=== PATIENT | female | born 1980 | race Caucasian/White ===

== ENCOUNTER 2018-01-24 11:30 | Outpatient (RCR) | payer BC, SELFPAY ==
--- NOTE | 2017-11-12 21:42 | PT.OIE ---
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) Full incontinence of feces (11/09/17) Provider Visit Care Team Role Provider Type Aminata Mackey MD Attending Provider Physician Family Provider Primary Care Provider Specialty: ARTISTIC DIRECTOR Address: [address] [place] [address], [phone] Email: [email or web address] Physical Therapy Initial Evaluation PT-OP-A Visit Information Start: 11/12/17 21:14 Freq: Status: Active Protocol: Document 11/09/17 11:15 [facility] (Rec: 11/12/17 21:42 [facility] [email or web address]) Out-Patient Physical Therapy Visit Information Visit Information Visit Type Initial Evaluation Visit Start Time 11:15 Visit Stop Time 12:00 Total Visit Minutes 45 Visit Number 1 Number of BRIDGE IRONWORKER Visits 0 Evaluation Information Evaluation Date 11/09/17 PT-OP-B Current Condition Start: 11/12/17 21:14 Freq: Status: Active Protocol: Document 11/09/17 11:15 [facility] (Rec: 11/12/17 21:42 [facility] [email or web address]) Current Condition History of Current Condition Onset Date 02/15/14 Current Complaints fecal incontinence, rectovaginal fistula, pelvic floor weakness History of Current Condition 36 year old female presenting with pelvic floor weakness that began after the of her first child 02/15/14. She has had 2 vaginal deliveries and a fistula was seen with her second vaginal delivery. She underwent fistula repair in February 2017. She was seen in PT in July 2017 prior to a interstimulation implant the end of August 2017. Her chief complains are of fecal incontinence and urgency . Jamar reports since the intersimulation impant she has noticed that her fecal urgency is decreased. She is still reporting bowel leakage 1+ time per day. Symptoms are increased with exercise, sit- stand, strong urge to go. Leakage only occurs in standing positions Treatment Goals Patient/Caregiver Goals Jamar's goals include eliminating fecal incontinence and improving her ability to exercise and enjoy recreational activities without fecal urgency. Prior Functional Status Baseline Function- ADL's Independent Baseline Function- Mobility Independent PT-OP-I Pelvic Floor Start: 11/12/17 21:14 Freq: Status: Active Protocol: Document 11/09/17 11:15 [facility] (Rec: 11/12/17 21:42 [facility] [email or web address]) Pelvic Floor Assessment Bowel Bowel Surgery Yes Bowel Symptoms Fecal Leakage Bowel Movement Frequency 3-6 [place] Stool Chart Comments currently stool is loose due to increased fiber intake Pelvic Clock Pelvic Clock 12-3 Atrophy Pelvic Clock 3-6 Atrophy Pelvic Clock 6-9 Atrophy Pelvic Clock 9-12 Atrophy SEMG (uV) Baseline 5 10 Second Contraction 8.1 Recruitment Pattern Poor/Slow Relaxation Fair Holding Poor/Slow Stability of Hold Poor/Slow SEMG Stability of Rest Fair Contraction Ability Voluntary Contraction Weak Voluntary Relaxation Weak Manual Muscle Testing Left 2 Manual Muscle Testing Right 2 Manual Muscle Testing Anterior 1 Manual Muscle Testing Posterior 3 Muscle Endurance (Seconds) 5 PT-OP-Q Treatments Start: 11/12/17 21:14 Freq: Status: Active Protocol: Document 11/09/17 11:15 [facility] (Rec: 11/12/17 21:42 [facility] [email or web address]) Therapeutic Exercises Supine Exercises 1 Supine Exercise Name pelvic floor strengthening exercises with EMG biofeedback Side bilateral Reps/Minutes 15 min PT-OP-T Assessment and Plan Start: 11/12/17 21:14 Freq: Status: Active Protocol: Document 11/09/17 11:15 [facility] (Rec: 11/12/17 21:42 [facility] [email or web address]) Physical Therapy Assessment Rehab Potential Rehabilitation Potential Good Evaluation Complexity Number of Personal Factors/Comorbidities 1-2 Number of Body Systems Impaired 1-2 Clinical Presentation at Evaluation Stable Impairments Impairments Activity Tolerance Sensation Strength Tone Goals Three Impairment elevated resting tone of the levator ani Short Term Goal (STG) Improve resting tone of the pelvic floor on EMG biofeedback to 2 uv or less STG Duration 6 weeks Two Impairment Decreased endurance of the levator ani Halfway Goal (LTG) Improve endurance of the levator ani to 10 second hold time in supine and 5 second hold time in standing LTG Duration 8 weeks One Impairment Weakness of the pelvic floor Loader Helper Goal (LTG) Improve pelvic floor strength with neuro -reeducation and EMG biofeedback to improve support to the rectum and sphincter and decrease fecal incontinence Assessment Summary Assessment Jamar presents to Physical therapy s/p InterStim and retrovaginal fistula repair with a great deal of pelvic floor muscle weakness. She continues to report fecal leakage but does not fecal urgency has lessened since her InterStim was placed. She is able to feel palpation of the levator ani but has difficulty with recruitment of the muscle and demonstrates poor endurance of her pelvic floor. Physical Therapy Plan Frequency and Duration Frequency of Treatment 1x/Week Duration of Treatment 8 weeks Plan of Care Start Date 11/09/17 Plan of Care End Date 01/04/18 Therapeutic Interventions Therapeutic Interventions Gait Training Manual Therapy Neuromuscular Re-education Self-Care/Home Management Therapeutic Exercises Modalities Biofeedback Electric Stimulation Please Sign and Return: I have reviewed this Plan of Care and certify that the skilled therapy services above are required to meet the patient?s needs. Physician Signature Date Printed Name and Credentials Clinical Instructor Signature Printed Name and Credentials
--- NOTE | 2017-11-23 18:51 | PT.OTN ---
Current Diagnoses Other female genital prolapse (11/22/17) Fistula of vagina to large intestine (11/22/17) Full incontinence of feces (11/22/17) Physical Therapy Treatment Note PT-OP-A Visit Information Start: 11/12/17 21:14 Freq: Status: Active Protocol: Document 11/22/17 11:30 [facility] (Rec: 11/23/17 18:51 [facility] [email or web address]) Out-Patient Physical Therapy Visit Information Visit Information Visit Type Treatment Note Visit Start Time 11:30 Visit Stop Time 12:15 Total Visit Minutes 45 Visit Number 2 Number of SKILLED LABOR Visits 0 PT-OP-B Current Condition Start: 11/12/17 21:14 Freq: Status: Active Protocol: Document 11/09/17 11:15 [facility] (Rec: 11/12/17 21:42 [facility] [email or web address]) Current Condition History of Current Condition Onset Date 02/15/14 Current Complaints fecal incontinence, rectovaginal fistula, pelvic floor weakness History of Current Condition 36 year old female presenting with pelvic floor weakness that began after the of her first child 02/15/14. She has had 2 vaginal deliveries and a fistula was seen with her second vaginal delivery. She underwent fistula repair in February 2017. She was seen in PT in July 2017 prior to a interstimulation implant the end of August 2017. Her chief complains are of fecal incontinence and urgency . Jamar reports since the intersimulation impant she has noticed that her fecal urgency is decreased. She is still reporting bowel leakage 1+ time per day. Symptoms are increased with exercise, sit- stand, strong urge to go. Leakage only occurs in standing positions Treatment Goals Patient/Caregiver Goals Jamar's goals include eliminating fecal incontinence and improving her ability to exercise and enjoy recreational activities without fecal urgency. Prior Functional Status Baseline Function- ADL's Independent Baseline Function- Mobility Independent PT-OP-C Subjective Start: 11/12/17 21:14 Freq: Status: Active Protocol: Document 11/22/17 11:30 [facility] (Rec: 11/23/17 18:51 [facility] [email or web address]) OP-PT Subjective Patient Comments Patient Comments still noting fecal incontinence symptoms but tolerating exercises well PT-OP-I Pelvic Floor Start: 11/12/17 21:14 Freq: Status: Active Protocol: Document 11/09/17 11:15 [facility] (Rec: 11/12/17 21:42 [facility] [email or web address]) Pelvic Floor Assessment Bowel Bowel Surgery Yes Bowel Symptoms Fecal Leakage Bowel Movement Frequency 3-6 [place] Stool Chart Comments currently stool is loose due to increased fiber intake Pelvic Clock Pelvic Clock 12-3 Atrophy Pelvic Clock 3-6 Atrophy Pelvic Clock 6-9 Atrophy Pelvic Clock 9-12 Atrophy SEMG (uV) Baseline 5 10 Second Contraction 8.1 Recruitment Pattern Poor/Slow Relaxation Fair Holding Poor/Slow Stability of Hold Poor/Slow SEMG Stability of Rest Fair Contraction Ability Voluntary Contraction Weak Voluntary Relaxation Weak Manual Muscle Testing Left 2 Manual Muscle Testing Right 2 Manual Muscle Testing Anterior 1 Manual Muscle Testing Posterior 3 Muscle Endurance (Seconds) 5 PT-OP-Q Treatments Start: 11/12/17 21:14 Freq: Status: Active Protocol: Document 11/22/17 11:30 [facility] (Rec: 11/23/17 18:51 [facility] [email or web address]) Therapeutic Exercises Supine Exercises 5 Supine Exercise Name TA facilitation 4 Supine Exercise Name adductor squeeze with pelvic floor contraction 3 Supine Exercise Name Roll outs with theraband 2 Supine Exercise Name quick pelvic floor contractions Reps/Minutes 2 seconds on 2 seconds off 1 Supine Exercise Name pelvic floor strengthening exercises with EMG biofeedback Side bilateral Reps/Minutes 10 min Comments including templates for coordination and eccentric control Other Exercises 1 Other Exercise Name quadraped TA facilitation PT-OP-T Assessment and Plan Start: 11/12/17 21:14 Freq: Status: Active Protocol: Document 11/22/17 11:30 [facility] (Rec: 11/23/17 18:51 [facility] [email or web address]) Physical Therapy Assessment Assessment Summary Assessment added in templates for eccentric control and coordination today and Roldan tolerated this well. Begin working on improved TA stabilization Physical Therapy Plan Frequency and Duration Frequency of Treatment 1x/Week Duration of Treatment 8 weeks Plan of Care Start Date 11/09/17 Plan of Care End Date 01/04/18 Therapeutic Interventions Therapeutic Interventions Manual Therapy Neuromuscular Re-education Self-Care/Home Management Therapeutic Exercises Modalities Biofeedback Electric Stimulation Next Visit Focus/Plan Next Note Type Treatment Note Next Visit Plan progress TA facilitation in supine to include dynamic stabilization
--- NOTE | 2017-12-21 17:16 | PT.OTN ---
Current Diagnoses Other female genital prolapse (12/21/17) Fistula of vagina to large intestine (12/21/17) Full incontinence of feces (12/21/17) Physical Therapy Treatment Note PT-OP-A Visit Information Start: 11/12/17 21:14 Freq: Status: Active Protocol: Document 12/21/17 17:06 [facility] (Rec: 12/21/17 17:13 [facility] [email or web address]) Out-Patient Physical Therapy Visit Information Visit Information Visit Type Treatment Note Visit Start Time 04:00 Visit Stop Time 04:45 Total Visit Minutes 45 Visit Number 3 Number of ALTERATION HAND Visits 0 Evaluation Information Evaluation Date 11/09/17 PT-OP-B Current Condition Start: 11/12/17 21:14 Freq: Status: Active Protocol: Document 11/09/17 11:15 [facility] (Rec: 11/12/17 21:42 [facility] [email or web address]) Current Condition History of Current Condition Onset Date 02/15/14 Current Complaints fecal incontinence, rectovaginal fistula, pelvic floor weakness History of Current Condition 36 year old female presenting with pelvic floor weakness that began after the of her first child 02/15/14. She has had 2 vaginal deliveries and a fistula was seen with her second vaginal delivery. She underwent fistula repair in February 2017. She was seen in PT in July 2017 prior to a interstimulation implant the end of August 2017. Her chief complains are of fecal incontinence and urgency . Jamar reports since the intersimulation impant she has noticed that her fecal urgency is decreased. She is still reporting bowel leakage 1+ time per day. Symptoms are increased with exercise, sit- stand, strong urge to go. Leakage only occurs in standing positions Treatment Goals Patient/Caregiver Goals Jamar's goals include eliminating fecal incontinence and improving her ability to exercise and enjoy recreational activities without fecal urgency. Prior Functional Status Baseline Function- ADL's Independent Baseline Function- Mobility Independent PT-OP-C Subjective Start: 11/12/17 21:14 Freq: Status: Active Protocol: Document 12/21/17 17:06 [facility] (Rec: 12/21/17 17:13 [facility] [email or web address]) OP-PT Subjective Patient Comments Patient Comments Jamar reports that a new setting was tried on the NMES unit. She is not sure but she might be a bit better with this new setting. She was able to walk around the vargas without leakage. She also reports being able to feel her pelvic floor contractions better now PT-OP-I Pelvic Floor Start: 11/12/17 21:14 Freq: Status: Active Protocol: Document 11/09/17 11:15 [facility] (Rec: 11/12/17 21:42 [facility] [email or web address]) Pelvic Floor Assessment Bowel Bowel Surgery Yes Bowel Symptoms Fecal Leakage Bowel Movement Frequency 3-6 [place] Stool Chart Comments currently stool is loose due to increased fiber intake Pelvic Clock Pelvic Clock 12-3 Atrophy Pelvic Clock 3-6 Atrophy Pelvic Clock 6-9 Atrophy Pelvic Clock 9-12 Atrophy SEMG (uV) Baseline 5 10 Second Contraction 8.1 Recruitment Pattern Poor/Slow Relaxation Fair Holding Poor/Slow Stability of Hold Poor/Slow SEMG Stability of Rest Fair Contraction Ability Voluntary Contraction Weak Voluntary Relaxation Weak Manual Muscle Testing Left 2 Manual Muscle Testing Right 2 Manual Muscle Testing Anterior 1 Manual Muscle Testing Posterior 3 Muscle Endurance (Seconds) 5 PT-OP-Q Treatments Start: 11/12/17 21:14 Freq: Status: Active Protocol: Document 12/21/17 17:06 [facility] (Rec: 12/21/17 17:13 [facility] [email or web address]) Therapeutic Exercises Supine Exercises 5 Supine Exercise Name TA facilitation then marches and heel slides Reps/Minutes 10 reps each 4 Supine Exercise Name adductor squeeze with pelvic floor contraction Reps/Minutes 10 reps 2 Supine Exercise Name quick pelvic floor contractions Reps/Minutes 2 seconds on 2 seconds off 1 Supine Exercise Name pelvic floor strengthening exercises with EMG biofeedback Side bilateral Reps/Minutes 10 min Comments including templates for coordination and eccentric control Sidelying Exercises 1 Sidelying Exercise Name clam shells and side leg lifts Reps/Minutes 2 x 10 each Other Exercises 1 Other Exercise Name Quadraped TA facilitation then opp arms and opp legs Reps/Minutes 10 reps each PT-OP-T Assessment and Plan Start: 11/12/17 21:14 Freq: Status: Active Protocol: Document 12/21/17 17:14 [facility] (Rec: 12/21/17 17:16 [facility] [email or web address]) Physical Therapy Assessment Progress Towards Goals Progress Towards Goals Progressing Toward Goals Assessment Summary Assessment Jamar continues to show progress with pelvic floor strengthening. Her average today was 10.5 uv with max of 15.8 uv. She would benefit from continued stabilization and progression to upright strengthening. Try pelvic floor lifts seated on ball next visit Physical Therapy Plan Frequency and Duration Frequency of Treatment 1x/Week Duration of Treatment 8 weeks Plan of Care Start Date 11/09/17 Plan of Care End Date 01/04/18 Therapeutic Interventions Therapeutic Interventions Manual Therapy Neuromuscular Re-education Self-Care/Home Management Therapeutic Exercises Modalities Biofeedback Electric Stimulation Next Visit Focus/Plan Next Note Type Treatment Note Next Visit Plan progress TA facilitation in supine to include dynamic stabilization, standing and seated pelvic floor contraction
--- NOTE | 2018-01-03 13:53 | PT.OTN ---
Current Diagnoses Other female genital prolapse (01/03/18) Fistula of vagina to large intestine (01/03/18) Full incontinence of feces (01/03/18) Physical Therapy Treatment Note PT-OP-A Visit Information Start: 11/12/17 21:14 Freq: Status: Active Protocol: Document 01/03/18 13:43 [facility] (Rec: 01/03/18 13:53 [facility] [email or web address]) Out-Patient Physical Therapy Visit Information Visit Information Visit Type Treatment Note Visit Start Time 11:30 Visit Stop Time 12:15 Total Visit Minutes 45 Visit Number 4 Number of PUBLIC EMPLOYMENT MEDIATOR Visits 0 PT-OP-B Current Condition Start: 11/12/17 21:14 Freq: Status: Active Protocol: Document 11/09/17 11:15 [facility] (Rec: 11/12/17 21:42 [facility] [email or web address]) Current Condition History of Current Condition Onset Date 02/15/14 Current Complaints fecal incontinence, rectovaginal fistula, pelvic floor weakness History of Current Condition 36 year old female presenting with pelvic floor weakness that began after the of her first child 02/15/14. She has had 2 vaginal deliveries and a fistula was seen with her second vaginal delivery. She underwent fistula repair in February 2017. She was seen in PT in July 2017 prior to a interstimulation implant the end of August 2017. Her chief complains are of fecal incontinence and urgency . Jamar reports since the intersimulation impant she has noticed that her fecal urgency is decreased. She is still reporting bowel leakage 1+ time per day. Symptoms are increased with exercise, sit- stand, strong urge to go. Leakage only occurs in standing positions Treatment Goals Patient/Caregiver Goals Jamar's goals include eliminating fecal incontinence and improving her ability to exercise and enjoy recreational activities without fecal urgency. Prior Functional Status Baseline Function- ADL's Independent Baseline Function- Mobility Independent PT-OP-C Subjective Start: 11/12/17 21:14 Freq: Status: Active Protocol: Document 01/03/18 13:43 [facility] (Rec: 01/03/18 13:53 [facility] [email or web address]) OP-PT Subjective Patient Comments Patient Comments Jamar reports she does feel like the new setting works better on her neurostimulation unit. She hasn't noticed a big change but has done a few hikes without leakage PT-OP-I Pelvic Floor Start: 11/12/17 21:14 Freq: Status: Active Protocol: Document 11/09/17 11:15 [facility] (Rec: 11/12/17 21:42 [facility] [email or web address]) Pelvic Floor Assessment Bowel Bowel Surgery Yes Bowel Symptoms Fecal Leakage Bowel Movement Frequency 3-6 [place] Stool Chart Comments currently stool is loose due to increased fiber intake Pelvic Clock Pelvic Clock 12-3 Atrophy Pelvic Clock 3-6 Atrophy Pelvic Clock 6-9 Atrophy Pelvic Clock 9-12 Atrophy SEMG (uV) Baseline 5 10 Second Contraction 8.1 Recruitment Pattern Poor/Slow Relaxation Fair Holding Poor/Slow Stability of Hold Poor/Slow SEMG Stability of Rest Fair Contraction Ability Voluntary Contraction Weak Voluntary Relaxation Weak Manual Muscle Testing Left 2 Manual Muscle Testing Right 2 Manual Muscle Testing Anterior 1 Manual Muscle Testing Posterior 3 Muscle Endurance (Seconds) 5 PT-OP-Q Treatments Start: 11/12/17 21:14 Freq: Status: Active Protocol: Document 01/03/18 13:43 [facility] (Rec: 01/03/18 13:53 [facility] [email or web address]) Therapeutic Exercises Supine Exercises 5 Supine Exercise Name TA facilitation then marches and heel slides Reps/Minutes 10 reps each 4 Supine Exercise Name adductor squeeze with pelvic floor contraction Reps/Minutes 10 reps 2 Supine Exercise Name quick pelvic floor contractions Reps/Minutes 2 seconds on 2 seconds off 1 Supine Exercise Name pelvic floor strengthening exercises with EMG biofeedback Side bilateral Reps/Minutes 10 min Comments including templates for coordination and eccentric control Sitting Exercises 2 Sitting Exercise Name seated ball pelvic tilts and pelvic circles 1 Sitting Exercise Name seated ball pelvic floor contractions Standing Exercises 1 Standing Exercise Name standing pelvic floor contractions PT-OP-T Assessment and Plan Start: 11/12/17 21:14 Freq: Status: Active Protocol: Document 01/03/18 13:43 [facility] (Rec: 01/03/18 13:53 [facility] [email or web address]) Physical Therapy Assessment Assessment Summary Assessment Average today on EMG biofeedback had improved to 12 .1 uv so Jamar is showing continued progress. She also tolerated the seated and standing exercises well Physical Therapy Plan Frequency and Duration Frequency of Treatment 1x/Week Duration of Treatment 8 weeks Plan of Care Start Date 11/09/17 Plan of Care End Date 01/04/18 Therapeutic Interventions Therapeutic Interventions Manual Therapy Neuromuscular Re-education Self-Care/Home Management Therapeutic Exercises Modalities Biofeedback Electric Stimulation Next Visit Focus/Plan Next Note Type Treatment Note Next Visit Plan progress TA facilitation in supine to include dynamic stabilization, standing and seated pelvic floor contraction
--- NOTE | 2018-01-25 17:42 | PT.OTN ---
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) Full incontinence of feces (01/24/18) Physical Therapy Treatment Note PT-OP-A Visit Information Start: 11/12/17 21:14 Freq: Status: Active Protocol: Document 01/24/18 17:36 [facility] (Rec: 01/25/18 17:42 [facility] [email or web address]) Out-Patient Physical Therapy Visit Information Visit Information Visit Type Progress Note Visit Start Time 11:30 Visit Stop Time 12:15 Total Visit Minutes 45 Visit Number 5 Number of HOSPITAL MONITOR Visits 0 PT-OP-B Current Condition Start: 11/12/17 21:14 Freq: Status: Active Protocol: Document 11/09/17 11:15 [facility] (Rec: 11/12/17 21:42 [facility] [email or web address]) Current Condition History of Current Condition Onset Date 02/15/14 Current Complaints fecal incontinence, rectovaginal fistula, pelvic floor weakness History of Current Condition 36 year old female presenting with pelvic floor weakness that began after the of her first child 02/15/14. She has had 2 vaginal deliveries and a fistula was seen with her second vaginal delivery. She underwent fistula repair in February 2017. She was seen in PT in July 2017 prior to a interstimulation implant the end of August 2017. Her chief complains are of fecal incontinence and urgency . Jamar reports since the intersimulation impant she has noticed that her fecal urgency is decreased. She is still reporting bowel leakage 1+ time per day. Symptoms are increased with exercise, sit- stand, strong urge to go. Leakage only occurs in standing positions Treatment Goals Patient/Caregiver Goals Jamar's goals include eliminating fecal incontinence and improving her ability to exercise and enjoy recreational activities without fecal urgency. Prior Functional Status Baseline Function- ADL's Independent Baseline Function- Mobility Independent PT-OP-C Subjective Start: 11/12/17 21:14 Freq: Status: Active Protocol: Document 01/24/18 17:36 [facility] (Rec: 01/25/18 17:42 [facility] [email or web address]) OP-PT Subjective Patient Comments Patient Comments Jamar states she is on a new setting again it is number 3 and this one is the best she has had overall. SHe reports she has only leaked one time this week and her urgency is down PT-OP-I Pelvic Floor Start: 11/12/17 21:14 Freq: Status: Active Protocol: Document 11/09/17 11:15 [facility] (Rec: 11/12/17 21:42 [facility] [email or web address]) Pelvic Floor Assessment Bowel Bowel Surgery Yes Bowel Symptoms Fecal Leakage Bowel Movement Frequency 3-6 [place] Stool Chart Comments currently stool is loose due to increased fiber intake Pelvic Clock Pelvic Clock 12-3 Atrophy Pelvic Clock 3-6 Atrophy Pelvic Clock 6-9 Atrophy Pelvic Clock 9-12 Atrophy SEMG (uV) Baseline 5 10 Second Contraction 8.1 Recruitment Pattern Poor/Slow Relaxation Fair Holding Poor/Slow Stability of Hold Poor/Slow SEMG Stability of Rest Fair Contraction Ability Voluntary Contraction Weak Voluntary Relaxation Weak Manual Muscle Testing Left 2 Manual Muscle Testing Right 2 Manual Muscle Testing Anterior 1 Manual Muscle Testing Posterior 3 Muscle Endurance (Seconds) 5 PT-OP-Q Treatments Start: 11/12/17 21:14 Freq: Status: Active Protocol: Document 01/24/18 17:36 [facility] (Rec: 01/25/18 17:42 [facility] [email or web address]) Therapeutic Exercises Supine Exercises 5 Supine Exercise Name TA facilitation then marches and heel slides Reps/Minutes 10 reps each 4 Supine Exercise Name adductor squeeze with pelvic floor contraction Reps/Minutes 10 reps 3 Supine Exercise Name Roll outs with theraband 2 Supine Exercise Name quick pelvic floor contractions Reps/Minutes 2 seconds on 2 seconds off 1 Supine Exercise Name pelvic floor strengthening exercises with EMG biofeedback Side bilateral Reps/Minutes 15 min Comments including templates for coordination and eccentric control Sidelying Exercises 1 Sidelying Exercise Name clam shells and side leg lifts Reps/Minutes 2 x 10 each Sitting Exercises 3 Sitting Exercise Name ball bridges with small ball squeeze 2 Sitting Exercise Name seated ball pelvic tilts and pelvic circles 1 Sitting Exercise Name seated ball pelvic floor contractions Other Exercises 2 Other Exercise Name lateral steps with theraband 1 Other Exercise Name Quadraped TA facilitation then opp arms and opp legs Reps/Minutes 10 reps each PT-OP-T Assessment and Plan Start: 11/12/17 21:14 Freq: Status: Active Protocol: Document 01/24/18 17:36 [facility] (Rec: 01/25/18 17:42 [facility] [email or web address]) Physical Therapy Assessment Assessment Summary Assessment added in standing dynamic exercises with good tolerance. Good progress with decreased leakage Physical Therapy Plan Frequency and Duration Frequency of Treatment 1x/Week Duration of Treatment 8 Plan of Care Start Date 01/04/18 Plan of Care End Date 03/08/18 Therapeutic Interventions Therapeutic Interventions Manual Therapy Neuromuscular Re-education Self-Care/Home Management Therapeutic Exercises Modalities Biofeedback Electric Stimulation Next Visit Focus/Plan Next Note Type Treatment Note Next Visit Plan progress TA facilitation in supine to include dynamic stabilization, standing and seated pelvic floor contraction
--- NOTE | 2018-01-25 17:43 | PT.OPPOC ---
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 Good progress with decreased leakage Physical Therapy Plan Frequency and Duration Frequency of Treatment 1x/Week Duration of Treatment 8 Plan of Care Start Date 01/04/18 Plan of Care End Date 03/08/18 Therapeutic Interventions Therapeutic Interventions Manual Therapy Neuromuscular Re-education Self-Care/Home Management Therapeutic Exercises Modalities Biofeedback Electric Stimulation Next Visit Focus/Plan Next Note Type Treatment Note Next Visit Plan progress TA facilitation in supine to include dynamic stabilization, standing and seated pelvic floor contraction Plan of Care Dates Plan of Care Start Date 01/04/18 Plan of Care End Date 03/08/18 Please Sign and Return: I have reviewed this Plan of Care and certify that the skilled therapy services above are required to meet the patient?s needs. Physician Signature Date Printed Name and Credentials Clinical Instructor Signature Printed Name and Credentials
--- NOTE | 2018-07-18 10:54 | PT.OPDS ---
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) Full incontinence of feces (01/24/18) Provider Visit Care Team Role Provider Type Aminata Mackey MD Attending Provider Physician Family Provider Primary Care Provider Specialty: MOTOR PATROL OPERATOR Address: [address] [place] [address], [address] Email: [email or web address] Visit Number Visit Number 5 Discharge Summary PT-OP-B Current Condition Start: 11/12/17 21:14 Freq: Status: Active Protocol: Document 11/09/17 11:15 [facility] (Rec: 11/12/17 21:42 [facility] [email or web address]) Current Condition History of Current Condition Onset Date 02/15/14 Current Complaints fecal incontinence, rectovaginal fistula, pelvic floor weakness History of Current Condition 36 year old female presenting with pelvic floor weakness that began after the of her first child 02/15/14. She has had 2 vaginal deliveries and a fistula was seen with her second vaginal delivery. She underwent fistula repair in February 2017. She was seen in PT in July 2017 prior to a interstimulation implant the end of August 2017. Her chief complains are of fecal incontinence and urgency . Jamar reports since the intersimulation impant she has noticed that her fecal urgency is decreased. She is still reporting bowel leakage 1+ time per day. Symptoms are increased with exercise, sit- stand, strong urge to go. Leakage only occurs in standing positions Treatment Goals Patient/Caregiver Goals Jamar's goals include eliminating fecal incontinence and improving her ability to exercise and enjoy recreational activities without fecal urgency. Prior Functional Status Baseline Function- ADL's Independent Baseline Function- Mobility Independent PT-OP-C Subjective Start: 11/12/17 21:14 Freq: Status: Active Protocol: Document 01/24/18 17:36 [facility] (Rec: 01/25/18 17:42 [facility] [email or web address]) OP-PT Subjective Patient Comments Patient Comments Jamar states she is on a new setting again it is number 3 and this one is the best she has had overall. SHe reports she has only leaked one time this week and her urgency is down PT-OP-I Pelvic Floor Start: 11/12/17 21:14 Freq: Status: Active Protocol: Document 11/09/17 11:15 [facility] (Rec: 11/12/17 21:42 [facility] [email or web address]) Pelvic Floor Assessment Bowel Bowel Surgery Yes Bowel Symptoms Fecal Leakage Bowel Movement Frequency 3-6 [place] Stool Chart Comments currently stool is loose due to increased fiber intake Pelvic Clock Pelvic Clock 12-3 Atrophy Pelvic Clock 3-6 Atrophy Pelvic Clock 6-9 Atrophy Pelvic Clock 9-12 Atrophy SEMG (uV) Baseline 5 10 Second Contraction 8.1 Recruitment Pattern Poor/Slow Relaxation Fair Holding Poor/Slow Stability of Hold Poor/Slow SEMG Stability of Rest Fair Contraction Ability Voluntary Contraction Weak Voluntary Relaxation Weak Manual Muscle Testing Left 2 Manual Muscle Testing Right 2 Manual Muscle Testing Anterior 1 Manual Muscle Testing Posterior 3 Muscle Endurance (Seconds) 5 PT-OP-T Assessment and Plan Start: 11/12/17 21:14 Freq: Status: Active Protocol: Document 07/18/18 10:53 [facility] (Rec: 07/18/18 10:54 [facility] [email or web address]) Physical Therapy Assessment Assessment Summary Assessment added in standing dynamic exercises with good tolerance. Good progress with decreased leakage. Jamar will be discharged at this time Physical Therapy Plan Discharge Physical Therapy Discharge Comments Jamar is making steady progress with her exercises. She will be discharged to a home program at this time
== END 2018-08-21 13:13 ==
LOC: PHYS 11:30
PROVIDERS: Family Provider Obstetrics & Gynecology; PCP Obstetrics & Gynecology; Visit Provider Obstetrics & Gynecology
DX: R15.9 Full incontinence of feces (principal); N82.3 Fistula of vagina to large intestine; N81.89 Other female genital prolapse
CPT/HCPCS: 90911; 97110; 97161

== ENCOUNTER → 2021-05-13 10:32 | Outpatient (CLI) | payer BC, SELFPAY ==
--- NOTE | 2021-05-13 10:33 | DI.MG.S_ITS ---
BILATERAL DIGITAL SCREENING MAMMOGRAM 3D/2D WITH CAD: 05/13/2021 CLINICAL: Baseline exam. Routine screening. No prior exams were available for comparison. The tissue of both breasts is extremely dense, which lowers the sensitivity of mammography. Current study was also evaluated with a Computer Aided Detection (CAD) system. No significant masses, calcifications, or other findings are seen in either breast. IMPRESSION: NEGATIVE There is no mammographic evidence of malignancy. A 1 year screening mammogram is recommended. This exam was interpreted at Station ID: [id number]. NOTE: For mammograms, a report in lay terms will be sent to the patient. Approximately 15% of breast malignancies will not be visualized mammographically. In the management of a palpable breast mass, a negative mammogram must not discourage biopsy of a clinically suspicious lesion. Electronically Signed By: Morena campos/julio cesar:05/13/2021 11:49:36 letter sent: Normal Exam ACR BI-RADS Category 1: Negative [id number]
== END ==
PROVIDERS: Family Provider Obstetrics & Gynecology; PCP Family Medicine; Referring Provider Obstetrics & Gynecology; Visit Provider Obstetrics & Gynecology
DX: Z12.31 Encounter for screening mammogram for malignant neoplasm of breast (principal)
CPT/HCPCS: 77063; 77067

== ENCOUNTER → 2022-04-15 13:16 | Outpatient (CLI) | payer BC, SELFPAY ==
--- NOTE | 2022-04-15 | DI.RAD.S_ITS ---
PROCEDURE: FL BARIUM SWALLOW W SPEECH INDICATIONS: DYSPHAGIA COMPARISON: None. TECHNIQUE: Examination was conducted in conjunction with speech pathology per standard protocol. In the lateral projection, filming was performed of the patient swallowing. AP projection filming may also be performed with patient swallowing. COMPARISON: FINDINGS: Function: The oral preparatory phase appears normal, with proper containment. The subsequent oral propulsive phase, pharyngeal phase, and esophageal phase of swallowing also appear normal with all proffered substances. No laryngotracheal penetration or aspiration. No pathologic vallecular pooling. Morphology: No cricopharyngeal bar is identified. No cervical esophageal webs. No Zenker's diverticulum. No strictures. IMPRESSION: Normal study. Please refer to speech pathology notes for additional findings. Dictated by: Cleveland Joe M.D. on 04/15/2022 at 15:32 Approved by: Cleveland Joe M.D. on 04/15/2022 at 15:32
--- NOTE | 2022-04-15 15:07 | ST.SWALLOW ---
Visit Care Team Role Provider Type Aminata Mackey MD Family Provider Physician Specialty: Gynecology CONFLICTS ANALYST Obstetrics Address: [address] [place] [address], [address] Email: [email or web address] Ridge Valadez MD Attending Provider Physician Primary Care Provider Referring Provider Specialty: Family Practice Address: [facility] [address], [address] Email: [email or web address] Modified Barium Swallow Study ADMINISTRATIVE VOLUNTEER Modified Barium Swallow Study Start: 04/15/22 13:59 Freq: Status: Active Protocol: Document 04/15/22 13:59 L[facility] (Rec: 04/15/22 15:07 LNK [id number]) Modified Barium Swallow Study Total Time Visit Start Time 13:30 Visit Stop Time 12:00 Total Visit Minutes 30 Referral Referring Physician Ridge Valadez MD Reason for Referral dysphagia Setting Setting Outpatient Care Patient Information Identification Type Name,Date of Patient History pt was seen for a Modified Barium Swallow Study at the referral of Dr. Valadez. Pt reports difficulty with swallowing, at times choking, for the last 2 years. Pt described foods like meats/ fish/ breads and dry foods being more difficult to swallow. She denies difficulty with liquids. Pt noted that her has performed the Heimlich x2 while she was choking. Pt also reported that she has needed to regurgitate in order to clear her throat. Pt pointed to the sternal notch and upper sternum when asked where she feels foods stuck. Subjective Observations Pt was seated in the fluoroscopy chair with instructions and directions described for her. She indicated that she understood and agreed to proceed. Patient Positioning Position View Lat-A/P Imaging Lateral View Textures Administered Trials Presented Thin Liquid via Spoon,Thin Liquid via Cup,Pudding Thick Liquid via Spoon,Regular Textures,Barium Tablet Oral Phase Source: MBSIMP (TM) (C) Bolus Specific Scoring Grid Lip Closure No Impairment (WNL) Tongue Control During Bolus Hold No Impairment (WNL) Bolus Prep/Mastication No Impairment (WNL) Bolus Transport/Lingual Motion No Impairment (WNL) A/P Lingual Propulsion Delay No Oral Residue No Impairment (WNL) Residue Clearing No Impairment (WNL) Nasal Regurgitation No Additional Oral Phase Observations OME was WNL with natural dentition in good hygiene. Oral phase of swallow was also WNL. Good mastication/rotary chew pattern. Good bolus control, bolus hold and AP transition. No oral residue observed post-swallow. Pharyngeal Phase Source: MBSIMP (TM) (C) Bolus Specific Scoring Grid Delayed Initiation of Pharyngeal Swallow Yes: Premature spillage (for thin liquids only) to the pyriform sinuses Soft Palate Elevation No Impairment (WNL) Tongue Base Strength/Range of Motion No Impairment (WNL) Residue Along the Tongue Base trace Clearance of Residue Along Tongue Base No Impairment (WNL) Laryngeal Elevation WFL Anterior Hyoid Movement WFL Epiglottic Range of Motion No Impairment (WNL) Vallecular Residue trace Clearance of Vallecular Residue No Impairment (WNL) Laryngeal Vestibular Closure No Impairment (WNL) Pharyngeal Stripping Wave No Impairment (WNL) Pharyngeal Contraction No Impairment (WNL) Posterior Pharyngeal Wall Residue trace Clearance of Posterior Pharyngeal Wall No Impairment (WNL) Residue Upper Esophageal Sphincter Opening No Impairment (WNL) Residue in the Pyriform Sinuses trace Clearance of Residue in the Pyriform No Impairment (WNL) Sinuses Esophageal Clearance Upright Position Mild Impairment Pharyngoesophageal Backflow Observed No Additional Pharyngeal Phase Observations Premature spillage to the pyriforms of thin liquids only . This can be considered WNL for some people. For solids there was no delay in swallow response. Laryngohyoid elevation was WFL with good epiglottic inversion and seal of the laryngeal vestibule. Pharyngeal phase of the swallow was WNL. A/P View A/P View Observations Esophageal Function WFL Esophageal Clearance Upright Position Moderate Impairment Additional Observations Bolus passage through the UES was WFl. There were osteophytes on C5-C6 that intruded against the esophagus that narrowed the esophagtun in that area but did not interfere with the flow of the bolus. An 11mm barium tablet was swallowed in the AP position. The tablet was observed to move through the esophagus toward the LES. The tablet did not pass through the LES, but stayed in that location despite additional water and barium swallows. The MBS ended with the tablet remaining in the esophagus. The pt was informed that the tablet will dissolve and eventually pass to her stomach . Clinical Impressions Dysphagia Type esophageal Patient Appropriate for Therapy No Recommendations Treatment Plan Recommended Referrals GI Consult Compensatory Strategies Recommendations Small Bites and Sips,Alternate Liquids/Solids Additional Compensatory Strategies Chew foods well; Remain Recommended upright after eating ro 30 minutes for gravity asst
== END ==
PROVIDERS: Family Provider Obstetrics & Gynecology; PCP Family Medicine; Referring Provider Family Medicine; Visit Provider Family Medicine
DX: R13.10 Dysphagia, unspecified (principal)
CPT/HCPCS: 74230; 92611

== ENCOUNTER → 2022-08-02 11:29 | Outpatient (CLI) | payer BC, SELFPAY ==
--- NOTE | 2022-08-02 | DI.MG.S_ITS ---
BILATERAL DIGITAL SCREENING MAMMOGRAM 3D/2D WITH CAD: 08/02/2022 CLINICAL: Routine screening. Comparison is made to exam dated: 05/13/2021 [facility]. Both breasts are extremely dense, which lowers the sensitivity of mammography (category d />75% glandular tissue). Current study was also evaluated with a Computer Aided Detection (CAD) system. There are possible a grouped punctate calcifications in the right breast posterior depth inferior region seen on the mediolateral oblique view only. There is architectural distortion associated with the calcifications. No other significant masses, calcifications, or other findings are seen in either breast. IMPRESSION: INCOMPLETE: NEEDS ADDITIONAL IMAGING EVALUATION The possible grouped punctate calcifications in the right breast are indeterminate. Magnification views as well as additional views with possible ultrasound are recommended. Based on Tyrer-Cuzick model (a risk assessment model), the patient's lifetime risk is 40.1% and her 10 year risk is 6.5%. If a patient has an elevated risk, a more comprehensive evaluation should be considered and/or a referral to a genetic counselor. The [place] [employer], [place] [employer], and NCCN Guidelines advise the consideration of Breast MRI as an adjunct to screening mammography in patients whose Lifetime risk to develop breast cancer is 20% or higher. This exam was interpreted at Station ID: [id number]. NOTE: For mammograms, a report in lay terms will be sent to the patient. Approximately 15% of breast malignancies will not be visualized mammographically. In the management of a palpable breast mass, a negative mammogram must not discourage biopsy of a clinically suspicious lesion. Electronically Signed By: Foster Mcdonald M.D., jr/julio cesar:08/02/2022 13:13:36 copy to: KARISSA HAMILTON letter sent: Additional Imaging Needed ACR BI-RADS Category 0: Incomplete 3340F
== END ==
PROVIDERS: Family Provider Obstetrics & Gynecology; PCP Family Medicine; Referring Provider Family Medicine; Visit Provider Family Medicine
DX: Z12.31 Encounter for screening mammogram for malignant neoplasm of breast (principal)
CPT/HCPCS: 77063; 77067

== ENCOUNTER → 2022-09-05 09:21 | Outpatient (CLI) | payer BC, SELFPAY ==
--- NOTE | 2022-09-05 | DI.MG.S_ITS ---
UNILATERAL RIGHT DIGITAL DIAGNOSTIC MAMMOGRAM 3D/2D WITH ADDITIONAL VIEWS: 09/05/2022 CLINICAL: Additional evaluation requested from prior study. Comparison is made to exams dated: 08/02/2022 mammogram and 05/13/2021 mammogram - [facility]. The right breast is extremely dense, which lowers the sensitivity of mammography (category d />75% glandular tissue). There are grouped round calcifications in the right breast posterior depth inferior region seen on the mediolateral oblique view only. No other significant masses or calcifications are seen in the breast. IMPRESSION: PROBABLY BENIGN The grouped round calcifications in the right breast are probably benign. A follow-up mammogram in 6 months is recommended to demonstrate stability. Based on Tyrer-Cuzick model (a risk assessment model), the patient's lifetime risk is 40.1% and her 10 year risk is 6.5%. If a patient has an elevated risk, a more comprehensive evaluation should be considered and/or a referral to a genetic counselor. The [place] [employer], [place] [employer], and NCCN Guidelines advise the consideration of Breast MRI as an adjunct to screening mammography in patients whose Lifetime risk to develop breast cancer is 20% or higher. This exam was interpreted at Station ID: [id number]. NOTE: For mammograms, a report in lay terms will be sent to the patient. Approximately 15% of breast malignancies will not be visualized mammographically. In the management of a palpable breast mass, a negative mammogram must not discourage biopsy of a clinically suspicious lesion. Electronically Signed By: Edmar Espino M.D. slc/:09/05/2022 10:06:24 copy to: KARISSA HAMILTON letter sent: Followup Recommended ACR BI-RADS Category 3: Probably benign 3343F
== END ==
PROVIDERS: Family Provider Obstetrics & Gynecology; PCP Family Medicine; Referring Provider Family Medicine; Visit Provider Family Medicine
DX: R92.8 Other abnormal and inconclusive findings on diagnostic imaging of breast (principal); R92.1 Mammographic calcification found on diagnostic imaging of breast
CPT/HCPCS: 77065; G0279

== ENCOUNTER 2022-09-05 14:32 | Day surgery (SDC) | payer BC, SELFPAY ==
--- NOTE | 2022-09-05 | PATH_ITS ---
[facility] Accession Number: [id number] No. of containers..02 Tissue . 01 Material submitted: . PART A: esophagus, E-G Junction - GE JUNCTION PART B: esophagus - MID ESOPHAGUS . 01 Diagnosis: A. Gastroesophageal Junction, Biopsy: Gastric-type mucosa with mild chronic inflammation and focal multilayered epithelium. No goblet cell metaplasia identified on special stain (AB/PAS), with control staining appropriately. No dysplasia or malignancy. See comment. . B. Mid Esophagus, Biopsy: Esophageal squamous mucosa with few scattered intraepithelial eosinophils (up to 4 eosinophils identified per high-power field). See comment. No fungal organisms identified on H/E slide. No dysplasia or malignancy. V 09/09/2022 1408 Local . 01 Comment: A. The presence of focal multilayered epithelium indicate only columnar metaplasia; however, no goblet cell metaplasia is seen on these biopsies. . B. The findings favor reflux alteration. Features of eosinophilic esophagitis are not identified. . 01 Electronically signed: . Alfreda Rosario MD, Pathologist NPI- [id number] . 01 Gross description: . Part A: GE JUNCTION: Received in formalin is 1 fragment(s) of kuhn, soft tissue measuring 0.3 x 0.2 x 0.1 cm submitted entirely in 1 cassette(s) Part B: MID ESOPHAGUS: Received in formalin is 1 fragment(s) of kuhn, soft tissue measuring 0.3 x 0.2 x 0.1 cm submitted entirely in 1 cassette(s) /CPE 09/07/2022 0845 Local . 01 Pathologist provided ICD-10: K21.9, K21.00 . 01 CPT . 008392, 567611, 032133, 528292 Specimen Comment: A courtesy copy of this report has been sent to [phone] Performed at: 01 [facility] [address] [facility], [place], [place] [id number] MD Harsha Pope MD Phone: [phone]
[2022-09-05] MEDS: LACTATED RINGERS 1,000 ML 120 ML IV (15:23)
[2022-09-05 15:25] VITALS: BP 128/71; PULSE 75; RESP 16; TEMP 36.8; O2SAT 100; BMI 25.8
--- NOTE | 2022-09-05 15:35 | P.HP_ITS ---
History of Present Illness History of Present Illness Date Patient Seen: 09/05/22 Time Patient Seen: 15:35 Chief complaint: EGD w/poss Bx & Dilation Narrative: Improved with antisecretory therapy but still had a couple of spells of dysphagia. Here for EGD today. Otherwise I reviewed my recent note and no other changes. FORMERLY [facility], [facility] Medical History Acute bacterial sinusitis Encounter for hepatitis C screening test for low risk patient Health maintenance examination Screening for cervical cancer Screening, lipid Sore throat Surgical History Hx of appendectomy (~2012) Family History Mother Breast cancer Depression Learning disability Father Depression Mental health problem Sister Depression Social History Smoking Status: Never smoker Meds Home Medications and Allergies Home Medications Medication Instructions Recorded Confirmed Type levonorgestrel 21 mcg/24 hours (8 52 mg INTRAU USEASDIRECTD ##0 10/13/16 09/05/22 History yrs) 52 mg intrauterine device (Mirena) cetirizine 10 mg capsule (Zyrtec) 10 mg PO DAILY PRN Allergy Symptoms 10/13/21 09/05/22 History citalopram 10 mg tablet 10 mg PO DAILY 10/13/21 09/05/22 History Allergies Allergy/AdvReac Type Severity Reaction Status Date / Time nitrofurantoin Allergy Unknown SEVERE Verified 09/05/22 15:19 FLU-LIKE SXS Review of Systems Review of Systems ROS: Yes All systems reviewed with the patient and are negative except as otherwise documented Exam Const General: cooperative HENMT Head: normal to inspection Eyes General: appearance normal, both eyes and all related structures Neck Neck: normal visual inspection Chest Chest: normal inspection of the chest Resp Effort & Inspection: normal respiratory effort Cardio Rate: regular rate GI Inspection: normal to inspection Skin General: no rashes or lesions noted Neuro General: patient alert and patient awake Extrem General: normal to inspection and no pedal edema Psych Appearance: grossly normal Assessment & Plan Assessment & Plan narrative: 41-year-old female with dysphagia and heartburn. EGD with possible dilatation is pursued today.
--- NOTE | 2022-09-05 15:36 | PM.PREOP ---
Pre-operative Note Interval Note History & Physical reviewed/Exam performed by Physician: Yes Changes to H&P: Yes ASA Class (for procedural sedation): II
--- NOTE | 2022-09-05 16:41 | PM.OP.EGD ---
Operative Date/Time/Diagnoses Date of procedure: 09/05/22 Time of procedure: 16:42 Pre-op diagnosis: Dysphagia heartburn Post-op diagnosis: same Procedure & Clinicians Study performed: EGD with biopsies and balloon dilatation Same procedure as scheduled: Yes Indications: Dysphagia heartburn Surgeon: Christian Hamlin Procedure Notes SCOAP/Timeout: Done Procedure in detail: After the risks and benefits were explained, written and verbal informed consent was obtained. The patient was brought into the procedure room and placed into the left lateral decubitus position. Please see anesthesia notes for sedation details. The scope was introduced into the mouth through the bite block and advanced under direct visualization to the 2nd portion of the duodenum. The scope was slowly withdrawn carefully examining the mucosa for any defects or lesions. Retroflexed views were accomplished in the stomach. The stomach was decompressed, the scope was then removed from the patient who tolerated the procedure well. Sedation minutes: 15 Complications: none Impression: 1. Duodenum: This was visually normal from the bulb through to the 2nd portion. 2. Stomach: No gastric outlet obstruction no ulcers no mass lesions. Retroflexed views of the LES were unremarkable. No significant gastric pathology appreciated throughout. 3. Esophagus: The squamocolumnar junction correlated with the top of the gastric folds. GEJ was at about 39 cm from the incisors. This was quite tight and just barely allowed the endoscope to pass into stomach. I did not appreciate any acute inflammation at this time. This did not appear consistent with neoplasia. The GE junction stenosis was sequentially dilated using a 10, 11, and finally 12 mm balloon setting. Each setting we held the balloon for approximately 1 minute. There was an appropriate rent in the mucosa following the 12 mm dilatation. I additionally took a biopsy from GE junction for histopathologic analysis. In order to exclude eosinophilic esophagitis, I took a couple of mid esophageal biopsies as well and submitted these separately. Endoscopic diagnosis 1. 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 Otherwise visually unremarkable EGD Post-procedure Plan for aftercare: 1. Await histopathology. 2. Continue anti-reflux therapy daily. 3. Follow up GI clinic in 6 weeks to review response and determine the need for further dilatation. I suspect at least 1 further balloon size up to 15 mm + is likely where we are going to need to stretch things to in order to remain asymptomatic. 4. Continue with caution at meals. Swallow smaller portions. Extensively masticate all portions. Disposition: PACU
[2022-09-05 16:43] VITALS: BP 103/72; PULSE 76; RESP 17; TEMP 36.8; O2SAT 97
[2022-09-05 16:48] VITALS: BP 104/65; PULSE 69; RESP 14; O2SAT 98
[2022-09-05 16:53] VITALS: BP 108/68; PULSE 63; RESP 12; O2SAT 100
[2022-09-05 16:58] VITALS: BP 110/70; PULSE 61; RESP 12; TEMP 37; O2SAT 100
[2022-09-05 17:10] VITALS: BP 107/70; PULSE 60; RESP 16; TEMP 37; O2SAT 97
== END 2022-09-05 17:14 | disposition home or self-care (01) ==
PROVIDERS: Family Provider Obstetrics & Gynecology; PCP Family Medicine; Referring Provider Internal Medicine Gastroenterology; Visit Provider Internal Medicine Gastroenterology
PROC: 0DJ08ZZ Inspection of Upper Intestinal Tract, Via Natural or Artificial Opening Endoscopic (ICD-10-PCS; CPT 43235; principal; 2022-09-05 15:30)
DX: R13.10 Dysphagia, unspecified (principal); K22.2 Esophageal obstruction; K29.50 Unspecified chronic gastritis without bleeding
CPT/HCPCS: 43249; 43239; 81025; J2704

== ENCOUNTER → 2023-03-07 13:26 | Outpatient (CLI) | payer BC, SELFPAY ==
--- NOTE | 2023-03-07 | DI.MG.S_ITS ---
UNILATERAL RIGHT DIGITAL DIAGNOSTIC MAMMOGRAM 3D/2D: 03/07/2023 CLINICAL: Short term follow up. Comparison is made to exams dated: 05/13/2021 mammogram, 08/02/2022 mammogram, and 09/05/2022 mammogram - [facility]. The right breast is extremely dense, which lowers the sensitivity of mammography (category d />75% glandular tissue). There are grouped round calcifications in the right breast lower posterior depth spanning 2 mm, which are seen on the mediolateral oblique view only. The calcifications are stable since prior mammogram 09/05/2022. No other significant masses or calcifications are seen in the breast. IMPRESSION: PROBABLY BENIGN Right breast 2 mm grouped round calcifications in the lower posterior position, stable since 09/05/2022. Findings are probably benign. Recommend follow-up mammogram in 6 months to demonstrate stability over 1 year stability. Of note, patient will be due for bilateral mammogram at that time. Findings and recommendations were conveyed to the patient during today's evaluation. Based on Tyrer-Cuzick model (a risk assessment model), the patient's lifetime risk is 40.2% and her 10 year risk is 7.0%. If a patient has an elevated risk, a more comprehensive evaluation should be considered and/or a referral to a genetic counselor. The [place] [employer], [place] [employer], and NCCN Guidelines advise the consideration of Breast MRI as an adjunct to screening mammography in patients whose Lifetime risk to develop breast cancer is 20% or higher. This exam was interpreted at Station ID: [id number]. NOTE: For mammograms, a report in lay terms will be sent to the patient. Approximately 15% of breast malignancies will not be visualized mammographically. In the management of a palpable breast mass, a negative mammogram must not discourage biopsy of a clinically suspicious lesion. Electronically Signed By: Swetha Stanley M.D. esb/:03/07/2023 14:40:20 copy to: KARISSA HAMILTON letter sent: Followup Recommended ACR BI-RADS Category 3: Probably benign 3343F
== END ==
PROVIDERS: Family Provider Obstetrics & Gynecology; PCP Family Medicine; Referring Provider Family Medicine; Visit Provider Family Medicine
DX: R92.8 Other abnormal and inconclusive findings on diagnostic imaging of breast (principal); R92.1 Mammographic calcification found on diagnostic imaging of breast
CPT/HCPCS: 77065; G0279

== ENCOUNTER 2023-04-17 13:15 | Day surgery (SDC) | payer BC, SELFPAY ==
[2023-04-17 14:26] VITALS: BMI 25.8
[2023-04-17 14:40] VITALS: BP 117/74; PULSE 73; RESP 16; TEMP 36.7; O2SAT 98
[2023-04-17] MEDS: LACTATED RINGERS 1,000 ML 100 ML IV (14:42)
--- NOTE | 2023-04-17 16:12 | PM.HP.1 ---
History of Present Illness History of Present Illness Date Patient Seen: 04/17/23 Time Patient Seen: 16:12 Chief complaint: EGD w/dilation poss/bx Narrative: I reviewed my recent office note. She is improved on the omeprazole but still has an element of dysphagia about once per week. [facility] Medical History Sore throat Acute bacterial sinusitis Screening for cervical cancer Encounter for hepatitis C screening test for low risk patient Screening, lipid Health maintenance examination Surgical History Hx of appendectomy (~2012) Family History Mother Breast cancer Depression Learning disability Father Depression Mental health problem Sister Depression Social History household members: spouse Smoking Status: Never smoker alcohol intake: current Meds Home Medications and Allergies Home Medications Medication Instructions Recorded Confirmed Type levonorgestrel 21 mcg/24 hours (8 52 mg INTRAU USEASDIRECTD ##0 10/13/16 04/17/23 History yrs) 52 mg intrauterine device (Mirena) cetirizine 10 mg capsule (Zyrtec) 10 mg PO DAILY PRN Allergy Symptoms 10/13/21 04/17/23 History citalopram 10 mg tablet 10 mg PO DAILY 10/13/21 04/17/23 History omeprazole 20 mg capsule,delayed 20 mg PO DAILY 04/17/23 04/17/23 History release Allergies Allergy/AdvReac Type Severity Reaction Status Date / Time nitrofurantoin Allergy Unknown SEVERE Verified 04/17/23 14:24 FLU-LIKE SXS Review of Systems Review of Systems ROS: Yes All systems reviewed with the patient and are negative except as otherwise documented Exam Vital Signs (past 8 hours): - 04/17/23 14:40 Temperature 98.1 F Pulse Rate 73 Respiratory Rate 16 Blood Pressure 117/74 Pulse Oximetry 98 Oxygen Delivery Method Room Air Oxygen Delivery Method Room Air Const General: cooperative HENMT Head: normal to inspection Eyes General: appearance normal, both eyes and all related structures Neck Neck: normal visual inspection Chest Chest: normal inspection of the chest Resp Effort & Inspection: normal respiratory effort Cardio Rate: regular rate GI Inspection: normal to inspection Skin General: no rashes or lesions noted Neuro General: patient alert and patient awake Extrem General: normal to inspection and no pedal edema Psych Appearance: grossly normal Assessment & Plan Assessment & Plan narrative: 42-year-old female with GERD and an associated distal esophageal stricture. Repeat EGD for probable further dilatation is pursued today.
--- NOTE | 2023-04-17 16:14 | PM.PREOP ---
Pre-operative Note Interval Note History & Physical reviewed/Exam performed by Physician: Yes Changes to H&P: No ASA Class (for procedural sedation): I
--- NOTE | 2023-04-17 16:34 | PM.OP.EGD ---
Operative Date/Time/Diagnoses Date of procedure: 04/17/23 Time of procedure: 16:35 Pre-op diagnosis: GERD and dysphagia Post-op diagnosis: same Procedure & Clinicians Study performed: EGD with balloon dilatation Same procedure as scheduled: Yes Indications: GERD and dysphagia Surgeon: Christian Hamlin Procedure Notes SCOAP/Timeout: Done Procedure in detail: After the risks and benefits were explained, written and verbal informed consent was obtained. The patient was brought into the procedure room and placed into the left lateral decubitus position. Please see anesthesia notes for sedation details. The scope was introduced into the mouth through the bite block and advanced under direct visualization to the 2nd portion of the duodenum. The scope was slowly withdrawn carefully examining the mucosa for any defects or lesions. Retroflexed views were accomplished in the stomach. The stomach was decompressed, the scope was then removed from the patient who tolerated the procedure well. Sedation minutes: 17 Specimen(s): none sent Complications: none Impression: 1. Duodenal: No pathology from the bulb through to the 2nd portion. 2. Stomach: No outlet obstruction no ulcers no mass lesions no significant mucosal pathology throughout. Retroflexed views of the LES were unremarkable. 3. Esophagus: The squamocolumnar junction was at approximately 36.5 cm from the incisors. The Z-line was well demarcated at the GE junction and I did not identify any actual inflammation at this time. The GE junction seemed to be slightly stenotic without obvious well demarcated stricture or ring. I started with a 12-15 mm balloon and sequentially dilated for 1 minute per setting up to 15 mm. After the 15 mm setting was accomplished, there was no evidence of any rent in the mucosa to suggest effective dilatation. I therefore upsized the balloon to the 15 through 18 mm balloon. I started at 16.5 mm and after deflating the balloon check to see if there was any evidence of blood and there was. I therefore did not progress past 16.5 mm. After the balloon was removed, an appropriate rent in the mucosa at the GE junction was visualized. Endoscopic diagnosis Mild GE junction stenosis status post balloon dilatation to 16.5 mm. Post-procedure Plan for aftercare: 1. Continue caution at mealtimes. 2. Continue anti-reflux therapy for now. 3. Follow up GI clinic in approximately 3 months. Disposition: PACU
[2023-04-17 16:37] VITALS: BP 105/65; PULSE 77; RESP 16; TEMP 36.9; O2SAT 96
[2023-04-17 16:41] VITALS: BP 112/84; PULSE 71; RESP 20; O2SAT 98
[2023-04-17 16:46] VITALS: BP 112/82; PULSE 62; RESP 16; O2SAT 99
[2023-04-17 16:52] VITALS: BP 125/79; PULSE 67; RESP 14; O2SAT 99
== END 2023-04-17 17:12 | disposition home or self-care (01) ==
PROVIDERS: Family Provider Obstetrics & Gynecology; PCP Family Medicine; Referring Provider Internal Medicine Gastroenterology; Visit Provider Internal Medicine Gastroenterology
PROC: 0DJ08ZZ Inspection of Upper Intestinal Tract, Via Natural or Artificial Opening Endoscopic (ICD-10-PCS; CPT 43235; principal; 2023-04-17 15:00)
DX: K22.2 Esophageal obstruction (principal); R13.10 Dysphagia, unspecified; K21.9 Gastro-esophageal reflux disease without esophagitis
CPT/HCPCS: 43249; J1100; J2405; J2704

== ENCOUNTER → 2023-10-05 09:30 | Outpatient (CLI) | payer BC, SELFPAY ==
--- NOTE | 2023-10-05 09:31 | DI.MG.S_ITS ---
BILATERAL DIGITAL DIAGNOSTIC MAMMOGRAM 3D/2D SHORT-TERM FOLLOW-UP: 10/05/2023 CLINICAL: Short term follow up of the right breast, due for bilateral imaging. Comparison is made to exams dated: 03/07/2023 mammogram, 09/05/2022 mammogram, and 08/02/2022 mammogram - [facility]. Both breasts are extremely dense, which lowers the sensitivity of mammography (category d />75% glandular tissue). There are stable grouped calcifications in the right breast posterior depth inferior region seen on the mediolateral oblique view only. These are seen in additional views. No other significant masses, calcifications, or other findings are seen in either breast. IMPRESSION: PROBABLY BENIGN The stable grouped calcifications in the right breast are probably benign. A follow-up mammogram in 12 months is recommended. Consider supplemental MRI breast cancer screening due to elevated lifetime risk. Based on Tyrer-Cuzick model (a risk assessment model), the patient's lifetime risk is 40.2% and her 10 year risk is 7.0%. If a patient has an elevated risk, a more comprehensive evaluation should be considered and/or a referral to a genetic counselor. The [place] [employer], [place] [employer], and NCCN Guidelines advise the consideration of Breast MRI as an adjunct to screening mammography in patients whose Lifetime risk to develop breast cancer is 20% or higher. This exam was interpreted at Station ID: [id number]. NOTE: For mammograms, a report in lay terms will be sent to the patient. Approximately 15% of breast malignancies will not be visualized mammographically. In the management of a palpable breast mass, a negative mammogram must not discourage biopsy of a clinically suspicious lesion. Electronically Signed By: Colin Burgess M.D. lc/:10/05/2023 10:24:51 copy to: KARISSA HAMILTON letter sent: Followup Recommended ACR BI-RADS Category 3: Probably benign [id number]
== END ==
PROVIDERS: Family Provider Obstetrics & Gynecology; PCP Family Medicine; Referring Provider Family Medicine; Visit Provider Family Medicine
DX: R92.8 Other abnormal and inconclusive findings on diagnostic imaging of breast (principal); R92.1 Mammographic calcification found on diagnostic imaging of breast; R92.343 Mammographic extreme density, bilateral breasts
CPT/HCPCS: 77066; G0279

== ENCOUNTER → 2024-10-15 10:16 | Outpatient (CLI) | payer BC, SELFPAY ==
--- NOTE | 2024-10-15 10:17 | DI.MG.S_ITS ---
MM diagnostic mammo BI: 10/15/2024. BI-RADS: 0 CLINICAL: 43-year old female for bilateral diagnostic mammogram that is a follow-up to diagnostic, bilateral, digital, tomosynthesis, short-term follo on 10/05/2023. [facility] lifetime risk of 33.8%. Current reported family history of breast cancer: mother. PRIOR EXAMS 10/05/2023, 03/07/2023, 09/05/2022, 08/02/2022, 05/13/2021. MAMMOGRAPHY TECHNIQUE: 2D and 3D (tomosynthesis) digital mammographic views obtained, with additional images as needed for full coverage. Current study was also evaluated with a Computer Aided Detection (CAD) system. DENSITY D. The breasts are extremely dense, which lowers the sensitivity of mammography. MAMMOGRAPHY FINDINGS Right: There are grouped calcifications that are unchanged in number. Left: CC only, Inner, Posterior depth: There is a new asymmetry seen only on one view. Additional imaging evaluation needed. IMPRESSION: Right * No evidence of malignancy with benign findings. Left (Asymmetry): CC only, Inner, Posterior depth * Incomplete - Needs additional imaging evaluation. RECOMMENDATIONS * Right grouped calcifications are benign, 2 year stability established. * Consider additional MRI screening given elevated lifetime risk. Left: CC only, Inner, Posterior depth * Further evaluation with diagnostic ultrasound. OVERALL ASSESSMENT CATEGORY BI-RADS-0: Incomplete - Need Additional Imaging Evaluation. ELECTRONICALLY SIGNED: Colin Burgess M.D. on 10/15/2024 at 11:34:36 AM PT Interpreting Station ID: [id number]
== END ==
LOC: MAMMO 10:16
PROVIDERS: Family Provider Obstetrics & Gynecology; PCP Family Medicine; Referring Provider Family Medicine; Visit Provider Family Medicine
DX: R92.8 Other abnormal and inconclusive findings on diagnostic imaging of breast (principal); R92.1 Mammographic calcification found on diagnostic imaging of breast; R92.333 Mammographic heterogeneous density, bilateral breasts; Z80.3 Family history of malignant neoplasm of breast
CPT/HCPCS: 77066; G0279

== ENCOUNTER → 2024-10-29 12:45 | Outpatient (CLI) | payer BC, SELFPAY ==
--- NOTE | 2024-10-29 12:47 | DI.US.S_ITS ---
PROCEDURE: US BREAST LT LIMITED COMPARISON: None. INDICATIONS: LEFT BREAST ABNORMAL FINDING FINDINGS: IMPRESSION: Dictated by: Swetha Stanley M.D.,Ph.D. on 10/29/2024 at 14:13 Approved by: Swetha Stanley M.D.,Ph.D. on 10/29/2024 at 14:49
--- NOTE | 2024-10-29 13:41 | DI.US.S_ITS ---
Patient Name: CARMEN FUNG date: 1980 Sex: F Attending Physician: Rory Indications: Date: 10/29/2024 15:34 At the request of: KARISSA HAMILTON Procedure: US breast LT limited US breast LT limited: 10/29/2024. BI-RADS: 2 CLINICAL: 43-year old female for left diagnostic breast ultrasound that is a follow-up to diagnostic mammogram on 10/15/2024. Tyrer-Cuzick lifetime risk of 33.8%. Current reported family history of breast cancer: mother. PRIOR EXAMS Mammogram(s): 10/15/2024. Five Other Exams on 10/05/2023, 03/07/2023, 09/05/2022, 08/02/2022, 05/13/2021. ULTRASOUND TECHNIQUE Real-time jackson scale and color doppler imaging of the area of clinical interest was performed with image documentation. ULTRASOUND FINDINGS Left: Upper Inner at 11:00, 4.5 cm from nipple, measuring 0.4 x 0.2 x 0.5 cm. Previous report: CC only, Inner: There is a simple cyst. This corresponds to the mammographic asymmetry seen in the inner middle depth on diagnostic mammogram 10/15/2024. There is a closely adjacent benign simple cyst. IMPRESSION: Left * No evidence of malignancy with benign findings. RECOMMENDATIONS Bilateral Continued Report - Page 2 of 2 Patient Name: CARMEN FUNG date: 1980 Sex: F Attending Physician: Rory Indications: Date: 10/29/2024 15:34 At the request of: KRAISSA HAMILTON Procedure: US breast LT limited * According to the Tyrer-Cuzick Risk Assessment Model, based on the information provided your patient has a greater than 20% lifetime risk for developing breast cancer. Consider supplemental screening with breast MRI and participation in a high risk screening program. * Annual screening mammography. COMMENTS: Findings and recommendations were conveyed to the patient during today's evaluation. OVERALL ASSESSMENT CATEGORY BI-RADS-2: Benign. ELECTRONICALLY SIGNED: Swetha Stanley M.D. on 10/29/2024 at 03:34:32 PM PT Interpreting Station ID: [id number]
== END ==
PROVIDERS: Family Provider Obstetrics & Gynecology; PCP Family Medicine; Referring Provider Family Medicine; Visit Provider Family Medicine
DX: R92.8 Other abnormal and inconclusive findings on diagnostic imaging of breast (principal); N60.02 Solitary cyst of left breast; Z80.3 Family history of malignant neoplasm of breast
CPT/HCPCS: 76642